=== PATIENT | female | born 1995 | race Caucasian/White ===

== ENCOUNTER 2021-12-06 02:10 | Inpatient (IN) | payer BC, MEDICAID ==
[2021-12-06] VITALS (22 sets, daily range): BP systolic 101–139; BP diastolic 56–77
[~2021-12-06] VITALS: Ht 165.1 cm; Wt 113.4 kg
--- OUTSIDE RECORDS SUMMARY | 2021-12-06 02:25 | XMS REPORT | Clinical Summary ---
Author Author [facility] Organization [facility] Address Unknown Phone Unavailable Care Team Providers Care Speeder Hand Name Role Phone No, Pcp GRINDER OPERATOR TOOL PCP Unavailable Allergies Not on File Medications Not on file Active Problems Not on file Encounters Not on filefrom Last 3 Months Immunizations Name Administration Dates Next Due PPD Test 02/26/2018 Social History Date Tobacco Use Types Packs/Day Years Used Never Assessed Sex Assigned at Date Recorded Not on file Last Filed Vital Signs Not on file Plan of Treatment Health Maintenance Due Date Last Done Comments [facility] COVID-19 Vaccine (1) 2000 Cervical Cancer: 2016 Screening Goals Not on file Medical Devices Not on file Procedures Not on filefrom Last 3 Months Results Not on filefrom Last 3 Months Additional Health Concerns Not on file Care Teams Start Date End Date Speeder Hand Relationship Specialty 02/26/18 No, Pcp, GRINDER OPERATOR TOOL PCP - General N/A Do not use
[2021-12-06] MEDS ORDERED: D5 LR IV SOLUTION 1,000 ML IV ONE (04:17)
--- NOTE | 2021-12-06 04:41 | History & Physical-OB ---
OB - Chief Complaint & HPI Date/Time Date of Admission: Date of Admission: December 06, 2021 at 02:10 Date seen by a Provider: December 06, 2021 Time Seen by a Provider: 04:35 Chief Complaint/History OB-Reason for Admission/Chief: Onset of Labor Hx : 1 Expected Date of Delivery: December 14, 2021 Gestational Age in Weeks: 38 Gestational Age in Days: 6 History of Labs O neg, Ab neg,, Rub Imm HIV/RPR/HepB/C NR Normal 1 hr GTT GBS neg Allergies and Home Medications Allergies Coded Allergies: No Known Drug Allergies (Unverified , 12/06/21) Patient Home Medication List Home Medication List Reviewed: Yes OB - History Hx of Present Care: Yes Ultrasounds: No ultrasounds Obstetrical Complications: None Medical Complications: None Information Induced Hypertension: No Maternal Gestational Diabetes: No Hemorrhage: No Obstetrical History Hx : 1 Number of Living Children: 0 Patient Past Medical History na Social History/Family History Alcohol Use: Denies Use Smoking Cessation: Never smoker Immunizations Influenza Vaccine Up-to-Date: Yes; Up-to-Date (08/22/21) First/Initial COVID19 Vaccine: 07/06/21 Second COVID19 Vaccination: 08/22/21 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[employer] Tetanus Booster (TDap): Less than 5yrs (09/26/21) Rubella: immune RPR/VDRL: Negative GBS Status: Negative HBsAG: Negative OB - Admission Exam Physical Exam HEENT: NCAT Heart: Rhythm Normal Lungs: Clear Abdomen: Gravid Cervical Dilatation: 8cm Effacement: 75% Station: -1 Membranes: Intact Heart Rate: 130's Accelerations: Accelerations Present Decelerations: No Decelerations Contractions on Admission: < 5 Minutes Apart Intensity: Firm OB - Assessment/Plan/Diagnosis Assessment Assessment: active labor Admission Dx Third Trimester 38 week gestation Active labor Admission Status: Inpatient Order (span 2 midnights) Reason for Inpatient Admission: Labor Plan Other Plan 26 yo G1 @ 38.6 wga presented in active labor Plan - Expectant management - GBS neg - Desires natural delivery at this time Copy Copies To 1: MANNY HERNANDEZ MD, HOLLY R MD December 06, 2021 04:40
[2021-12-06] MEDS ORDERED: D5 LR IV SOLUTION 1,000 ML IV SCH (05:15)
[2021-12-06] MEDS ORDERED: MINERAL OIL 30 ML TOP PRN (05:15)
[2021-12-06] MEDS ORDERED: LIDOCAINE/EPI 2% 1:200,00 (XYLOCAINE) 20 ML VIAL INJ PRN (05:15)
[2021-12-06 05:20] LABS: BASOPHILS % (AUTO) 0 % (0-10); EOSINOPHILS # (AUTO) 0.1 10^3/uL (0.0-0.3); EOSINOPHILS % (AUTO) 1 % (0-10); HEMATOCRIT 35 % (35-52); HEMOGLOBIN 11.2 g/dL (11.5-16.0); LYMPHOCYTES # (AUTO) 2.2 10^3/uL (1.0-4.0); LYMPHOCYTES % (AUTO) 20 % (12-44); MEAN CORPUSCULAR HEMOGLOBIN 28 pg (25-34); MEAN CORPUSCULAR HGB CONC 32 g/dL (32-36); MEAN CORPUSCULAR VOLUME 87 fL (80-99); MEAN PLATELET VOLUME 9.4 fL (9.0-12.2); MONOCYTES # (AUTO) 0.6 10^3/uL (0.0-1.0); MONOCYTES % (AUTO) 6 % (0-12); NEUTROPHILS # (AUTO) 8.3 10^3/uL (1.8-7.8); NEUTROPHILS % (AUTO) 73 % (42-75); PLATELET COUNT 314 10^3/uL (130-400); WHITE BLOOD COUNT 11.3 10^3/uL (4.3-11.0)
[2021-12-06] MEDS ORDERED: CATHETER FLUSH 10 ML SYR IV SCH ×2 (06:00→14:00)
--- NOTE | 2021-12-06 06:05 | Labor Progress Note ---
Labor Progress Note Labor Progress Note Date Seen by Provider: December 06, 2021 Time Seen by Provider: 06:03 Subjective: Patient feeling more pressure. Still denies any LOF. Tolerating ctxs. Objective: Cervical exam: /- Consistency: Soft Presentation: Vertex per SVE heart tones: 145 beats per minute, Mod variability, reactive Tocometer: q 2-3 mins, firm Assessment/Plan: Kirsten He is a (26 /Para 1 / ,Gestational Age (wks)38.6 here in active labor CEFM/TOCO Anesthesia: Natural Anticipate vaginal delivery. GBS neg AROM 0600 Clear Vitals - Labs Vital Signs - I&O Vital Signs Date Time Temp Pulse Resp B/P (MAP) Pulse Ox O2 Delivery O2 Flow Rate FiO2 12/06/21 02:20 36.4 59 18 99 Room Air Labs Laboratory Tests 12/06/21 04:23: White Blood Count 11.3H, Red Blood Count 3.98, Hemoglobin 11.2L, Hematocrit 35, Mean Corpuscular Volume 87, Mean Corpuscular Hemoglobin 28, Mean Corpuscular Hemoglobin Concent 32, Red Cell Distribution Width 13.8, Platelet Count 314, Mean Platelet Volume 9.4, Immature Granulocyte % (Auto) 0, Neutrophils (%) (Auto) 73, Lymphocytes (%) (Auto) 20, Monocytes (%) (Auto) 6, Eosinophils (%) (Auto) 1, Basophils (%) (Auto) 0, Neutrophils # (Auto) 8.3H, Lymphocytes # (Auto) 2.2, Monocytes # (Auto) 0.6, Eosinophils # (Auto) 0.1, Basophils # (Auto) 0.0, Immature Granulocyte # (Auto) 0.1 MANNY HERNANDEZ MD December 06, 2021 06:05
[2021-12-06] MEDS ORDERED: LIDOCAINE/EPI 2% 1:200,00 (XYLOCAINE) 10 ML VIAL ONE (07:32)
[2021-12-06] MEDS ORDERED: OXYTOCIN PRE-MIX DRIP 500 ML IV ONE (07:32)
[2021-12-06] MEDS ORDERED: LIDOCAINE/EPI 2% 1:200,00 (XYLOCAINE) 10 ML VIAL INJ ONE (07:45)
[2021-12-06] MEDS ORDERED: OXYTOCIN PRE-MIX DRIP 500 ML IV SCH ×2 (07:45→10:15)
[2021-12-06] MEDS ORDERED: METHYLERGONOVINE 0.2 MG/ML (METHERGINE) AMP ONE (09:42)
[2021-12-06] MEDS ORDERED: fentaNYL INJ 100 MCG/2 ML AMP ONE (09:45)
--- NOTE | 2021-12-06 10:00 | OB Labor & Delivery Record ---
Vag Delivery Note Vag Delivery Note Date of Delivery: 12/06/21 Preoperative Diagnosis: Kirsten He is a (26 /Para 1 / ,Gestational Age (wks)38.6 that presented in active labor Postoperative Diagnosis: Same Surgeon: MANNY HERNANDEZ MD Inspector Materials And Processes: None Anesthesia: None Delivery Type: @ 0927 Findings: Viable Male , apgars 8/9, weight 7#1, 3190 grams Lacerations: 2nd degree perineal laceration and left labial laceration Intact placenta with 3 vessel cord. No nuchal cord, body cord or shoulder dystocia Cytotec 800 mcg placed for hemorrhage prophylaxis Estimated Blood Loss: 300 ml Complications: None Condition: Stable Description of Procedure: The patient is a 26 year old female who presented in active labor and was augmented with pitocin after 2 hrs of no cervical change after AROM. She was admitted and informed consent was obtained. Her labor course was unremarkable. She progressed to complete dilatation and began to push. She was then set up for delivery. The infant's head was delivered atraumatically in the IAN position. The shoulders and remainder of the 's body were then delivered without difficulty. Upon delivery, the head was held below the level of the perineum and the mouth and nares were bulb suctioned. The cord was doubly clamped and cut by FOB after 2 min delay and the infant was attended to by the pediatric staff on maternal. An intact placenta with 3-vessel cord delivered via Leonard and there was found to be minimal bleeding.~ Vigorous fundal massage was performed and the fundus was found to be firm. IV oxytocin was given. Examination of the vagina and perineum revealed a 2nd degree perineal laceration repaired in the usual fashion with 3-0 vicryl suture and left labial laceration that was not repaired and not bleeding. Following the repair, sponge, instrument and needle counts were correct. Mom and baby were both in stable condition in the labor suite. Vitals - Labs Vital Signs - I&O Vital Signs Date Time Temp Pulse Resp B/P (MAP) Pulse Ox O2 Delivery O2 Flow Rate FiO2 12/06/21 08:00 36.5 54 20 127/76 (93) Room Air 12/06/21 07:45 67 20 120/69 (86) Room Air 12/06/21 07:30 36.3 58 20 101/56 (71) Room Air 12/06/21 07:00 20 Room Air 12/06/21 06:30 54 20 110/74 (86) Room Air 12/06/21 06:00 36.5 20 Room Air 12/06/21 05:30 20 Room Air 12/06/21 02:20 36.4 59 18 99 Room Air Labs Laboratory Tests 12/06/21 04:23: White Blood Count 11.3H, Red Blood Count 3.98, Hemoglobin 11.2L, Hematocrit 35, Mean Corpuscular Volume 87, Mean Corpuscular Hemoglobin 28, Mean Corpuscular Hemoglobin Concent 32, Red Cell Distribution Width 13.8, Platelet Count 314, Mean Platelet Volume 9.4, Immature Granulocyte % (Auto) 0, Neutrophils (%) (Auto) 73, Lymphocytes (%) (Auto) 20, Monocytes (%) (Auto) 6, Eosinophils (%) (Auto) 1, Basophils (%) (Auto) 0, Neutrophils # (Auto) 8.3H, Lymphocytes # (Auto) 2.2, Monocytes # (Auto) 0.6, Eosinophils # (Auto) 0.1, Basophils # (Auto) 0.0, Immature Granulocyte # (Auto) 0.1 MANNY HERNANDEZ MD December 06, 2021 10:00
[2021-12-06] MEDS ORDERED: WITCH HAZEL(TUCKS) 40 EA JAR TOP PRN (10:15)
[2021-12-06] MEDS ORDERED: NALOXONE 0.4 MG/ML 1 ML (NARCAN) VIAL IV PRN (10:15)
[2021-12-06] MEDS ORDERED: BENZOCAINE/MENTHOL (DERMOPLAST) 56 ML CAN TP PRN (10:15)
[2021-12-06] MEDS ORDERED: TETANUS,DIPTH,PERTUSS P/F (BOOSTRIX) 0.5 ML VIAL IM ONE (10:15)
[2021-12-06] MEDS ORDERED: METHYLERGONOVINE 0.2 MG/ML (METHERGINE) AMP IM ONE (11:00)
[2021-12-06] MEDS ORDERED: fentaNYL INJ 100 MCG/2 ML AMP IVP ONE (11:00)
[2021-12-06] MEDS ORDERED: LACTATED RINGERS 500 ML IV ONE ×2 (13:04)
[2021-12-06] MEDS ORDERED: ACETAMINOPHEN 500 MG TAB (TYLENOL) PO PRN (15:30)
[2021-12-06] MEDS: IBUPROFEN 600 MG (MOTRIN) TAB PO SCH (15:45)
[2021-12-06] MEDS: DOCUSATE SODIUM 100 MG (COLACE) CAP PO SCH (20:14)
[2021-12-07 00:39] VITALS: BP 104/51
[2021-12-07] MEDS: IBUPROFEN 600 MG (MOTRIN) TAB PO SCH ×2 (00:39→07:01)
[2021-12-07 03:25] VITALS: BP 122/64
[2021-12-07 05:55] LABS: BASOPHILS % (AUTO) 0 % (0-10); EOSINOPHILS # (AUTO) 0.1 10^3/uL (0.0-0.3); EOSINOPHILS % (AUTO) 1 % (0-10); HEMATOCRIT 25 % (35-52); HEMOGLOBIN 7.9 g/dL (11.5-16.0); LYMPHOCYTES # (AUTO) 2.2 10^3/uL (1.0-4.0); LYMPHOCYTES % (AUTO) 16 % (12-44); MEAN CORPUSCULAR HEMOGLOBIN 28 pg (25-34); MEAN CORPUSCULAR HGB CONC 32 g/dL (32-36); MEAN CORPUSCULAR VOLUME 88 fL (80-99); MEAN PLATELET VOLUME 9.4 fL (9.0-12.2); MONOCYTES # (AUTO) 0.6 10^3/uL (0.0-1.0); MONOCYTES % (AUTO) 5 % (0-12); NEUTROPHILS # (AUTO) 10.2 10^3/uL (1.8-7.8); NEUTROPHILS % (AUTO) 77 % (42-75); PLATELET COUNT 235 10^3/uL (130-400); WHITE BLOOD COUNT 13.1 10^3/uL (4.3-11.0)
[2021-12-07 08:14] VITALS: BP 117/65
[2021-12-07] MEDS: DOCUSATE SODIUM 100 MG (COLACE) CAP PO SCH (08:27)
[2021-12-07] MEDS ORDERED: FERROUS SULF 325 MG (IRON) TAB PO SCH (09:00)
--- NOTE | 2021-12-07 09:10 | Short Stay Summary ---
Discharge Summary Hospital Course Final Diagnosis: s/p on 12/06/21 Hospital Course Date of Admission: December 06, 2021 at 02:10 Admission Diagnosis : 1. G1 at 38w6d; spontaneous labor 2. Rh negative Family Physician/Provider: Luca Date of Discharge: 12/07/21 Discharge Diagnosis: 1. G1 at 38w6d; spontaneous labor s/p 12/06/21 2. Secondary degree and L labia laceration repair 3. Acute blood loss anemia secondary to delivery - asymptomatic Hospital Course: Routine course. Started iron BID for anemia. Labs and Pending Lab Test: Laboratory Tests 12/07/21 05:30: White Blood Count 13.1H, Red Blood Count 2.84L, Hemoglobin 7.9#L, Hematocrit 25L , Mean Corpuscular Volume 88, Mean Corpuscular Hemoglobin 28, Mean Corpuscular Hemoglobin Concent 32, Red Cell Distribution Width 13.9, Platelet Count 235, Mean Platelet Volume 9.4, Immature Granulocyte % (Auto) 1, Neutrophils (%) (Auto) 77H, Lymphocytes (%) (Auto) 16, Monocytes (%) (Auto) 5, Eosinophils (%) (Auto) 1, Basophils (%) (Auto) 0, Neutrophils # (Auto) 10.2H, Lymphocytes # (Auto) 2.2, Monocytes # (Auto) 0.6, Eosinophils # (Auto) 0.1, Basophils # (Auto) 0.0, Immature Granulocyte # (Auto) 0.1 Assessment/Pt Instructions Follow-up with Dr. Segovia in 6wk. Discharge Instructions Discharge Diet: No Restrictions Discharge Physical Examination General Appearance: Alert, Oriented X3, Cooperative Psych/Mental Status: Mood NL Allergies: Coded Allergies: No Known Drug Allergies (Unverified , 12/06/21) Discharge Summary Date of Admission December 06, 2021 at 02:10 Date of Discharge CARMEN TABOR DO December 07, 2021 09:10
[2021-12-07] MEDS ORDERED: FERR325T24 PO (09:11)
[2021-12-07] MEDS ORDERED: IBUP-844 PO (09:11)
[2021-12-07 11:55] VITALS: BP 119/63
[2021-12-07 12:00] VITALS: BP 119/63
== END 2021-12-07 12:35 | disposition home or self-care (01) | DRG 806 ==
LOC: LDRP 02:10
PROVIDERS: ADMIT Family Medicine; ATTEND Family Medicine
PROC: 10E0XZZ Delivery of Products of Conception, External Approach (ICD-10-PCS; principal; 2021-12-06)
PROC: 0KQM0ZZ Repair Perineum Muscle, Open Approach (ICD-10-PCS; 2021-12-06)
PROC: 10907ZC Drainage of Amniotic Fluid, Therapeutic from Products of Conception, Via Natural or Artificial Opening (ICD-10-PCS; 2021-12-06)
PROC: 0UQMXZZ Repair Vulva, External Approach (ICD-10-PCS; 2021-12-06)
DX: O70.1 Second degree perineal laceration during delivery (principal); D62 Acute posthemorrhagic anemia; Z37.0 Single live birth; Z3A.38 38 weeks gestation of pregnancy; O71.89 Other specified obstetric trauma; O90.81 Anemia of the puerperium
CPT/HCPCS: 36415; 83033; 85025; 86850; 86900; 86901; 99212

== ENCOUNTER 2022-11-01 10:40 | Observation (INO) | payer MEDICAID ==
[~2022-11-01] VITALS: Ht 66 cm; Wt 110.0 kg
[~2022-11-01 10:40] MED LIST: FERR325T24 PO; IBUP-844 PO; LACTATED RINGERS 1,000 ML IV ONE
[2022-11-01 11:55] LABS: BILIRUBIN,URINE NEGATIVE (NEGATIVE); CLARITY,URINE CLEAR; COLOR,URINE YELLOW; GLUCOSE, URINE (UA) NEGATIVE (NEGATIVE); KETONES,URINE 2+ (NEGATIVE); LEUKOCYTE ESTERASE ,URINE NEGATIVE (NEGATIVE); NITRITE,URINE NEGATIVE (NEGATIVE); PROTEIN,URINE NEGATIVE (NEGATIVE)
[2022-11-01 12:00] LABS: BASOPHILS % (AUTO) 0 % (0-10); EOSINOPHILS % (AUTO) 0 % (0-10); HEMATOCRIT 31 % (35-52); HEMOGLOBIN 9.4 g/dL (11.5-16.0); LYMPHOCYTES # (AUTO) 0.7 10^3/uL (1.0-4.0); LYMPHOCYTES % (AUTO) 7 % (12-44); MEAN CORPUSCULAR HEMOGLOBIN 24 pg (25-34); MEAN CORPUSCULAR HGB CONC 30 g/dL (32-36); MEAN CORPUSCULAR VOLUME 77 fL (80-99); MEAN PLATELET VOLUME 9.1 fL (9.0-12.2); MONOCYTES # (AUTO) 0.4 10^3/uL (0.0-1.0); MONOCYTES % (AUTO) 5 % (0-12); NEUTROPHILS # (AUTO) 7.9 10^3/uL (1.8-7.8); NEUTROPHILS % (AUTO) 87 % (42-75); PLATELET COUNT 299 10^3/uL (130-400)
[2022-11-01] MEDS ORDERED: ONDANSETRON 4 MG/2 ML (SDV) Z0FRAN IVP PRN (12:00)
[2022-11-01 12:04] LABS: ALBUMIN 3.3 GM/DL (3.2-4.5)
[2022-11-01 12:05] LABS: POTASSIUM 3.8 MMOL/L (3.6-5.0)
[2022-11-01 12:06] LABS: CALCIUM 8.5 MG/DL (8.5-10.1)
[2022-11-01 12:07] LABS: TOTAL PROTEIN 6.6 GM/DL (6.4-8.2)
[2022-11-01 12:09] LABS: BILIRUBIN,TOTAL 0.7 MG/DL (0.1-1.0)
[2022-11-01 12:09] LABS: AMORPHOUS SEDIMENT,UR FEW AMOR URATES /LPF; BACTERIA,URINE NEGATIVE /HPF; SQUAMOUS EPITHELIAL CELL,UR 0-2 /HPF; WBC,URINE RARE /HPF
[2022-11-01 12:11] LABS: CREATININE SERUM 0.71 MG/DL (0.60-1.30)
[2022-11-01 12:21] LABS: NEUTROPHILS % (MANUAL) 83 %
[2022-11-01] MEDS: D5 LR IV SOLUTION 1,000 ML IV SCH ×2 (12:21→18:58)
[2022-11-01 12:22] LABS: ANISOCYTOSIS SLIGHT; BAND NEUTROPHILS 8 %; BASOPHILS % (MANUAL) 0 %; ELLIPT/OVALOCYTES SLIGHT; EOSINOPHILS % (MANUAL) 0 %; LYMPHOCYTES % (MANUAL) 8 %; MICROCYTOSIS SLIGHT; MONOCYTES % (MANUAL) 1 %
--- NOTE | 2022-11-01 13:25 | Diagnostic Imaging Report ---
INDICATION: Syncopal episode TECHNIQUE: The fetus was observed for purposes of a biophysical profile evaluation. FINDINGS: Intrauterine is currently in a cephalic presentation. The placenta is along the posterior aspect without evidence for previa. cardiac activity at 142 beats per minute. Normal amount of amniotic fluid with an index at 14.5 cm. Biometrical measurements are as follows: Biparietal 8.96 cm, age 36 weeks 2 days. Head circumference 32.55 cm, age 37 weeks 0 days. Abdominal circumference 32.88 cm, age 36 weeks 6 days. Femur length 6.68 cm, age 34 weeks 3 days. Sonographic estimate age: 36 weeks 1 days. Sonographic estimated date of delivery: 11/28/2022. Estimated Weight: 2859 gm (+/- 418 gm). LMP percentile: 69%. heart rate: 142 beats per minute. number: 1 of 1. Biophysical Profile Scoring: breathin Body movement: 2 tone: 2 Amniotic fluid: 2 Total BPP Score: 8/8 IMPRESSION: 1. Normal biophysical profile score. Dictated by: Dictated on workstation # [id number]
[2022-11-01 13:34] VITALS: BP 133/74
[2022-11-01 13:40] VITALS: BP 112/42
[2022-11-01 16:00] VITALS: BP 124/60
[2022-11-01 20:08] VITALS: BP 119/67
[2022-11-01 21:30] VITALS: BP 119/67
--- NOTE | 2022-11-10 13:11 | Physician Query-Final Dx ---
MARTI,11/10/22 1311: Clinic Account Progress/Dx Physician Query: Please give diagnosis Please include # weeks gestation Date of Service MANNY HERNANDEZ MD 11/12/22 1946: Clinic Account Progress/Dx DIAGNOSIS: Diagnosis third trimester syncope Nausea and vomiting in 35 weeks gestation MARTI,AugNov 10, 2022 13:11 MANNY HERNANDEZ MD Nov 12, 2022 19:46
== END 2022-11-01 21:30 | disposition home or self-care (01) ==
LOC: LDRP 10:40
PROVIDERS: ADMIT Family Medicine; ATTEND Family Medicine
DX: O99.353 Diseases of the nervous system complicating pregnancy, third trimester (principal); O21.2 Late vomiting of pregnancy; Z3A.35 35 weeks gestation of pregnancy
CPT/HCPCS: 36415; 76805; 76819; 80053; 81000; 85007; 85027; 87088; 96361; 96374; G0378

== ENCOUNTER 2022-11-17 12:12 | Inpatient (IN) | payer MEDICAID ==
[~2022-11-17] VITALS: Ht 167.7 cm; Wt 112.0 kg
[2022-11-17] VITALS (14 sets, daily range): BP systolic 101–134; BP diastolic 51–81
[~2022-11-17 12:12] MED LIST changes: -LACTATED RINGERS 1,000 ML IV ONE
--- NOTE | 2022-11-17 12:30 | ED GU-Female ---
General Chief Complaint: OB > 20 WEEKS Stated Complaint: LABOR CONTRACTIONS History of Present Illness Date Seen by Provider: Nov 17, 2022 Time Seen by Provider: 12:20 Initial Comments 27-year-old female who is 2 and 37 weeks and 6 days , is here with complaints of contractions which began about 10 or 20 minutes ago. Patient reports that her contractions are 1 minute apart, and also gives a history of delivering her first baby after having only 1 hour of contractions. Patient reports her water has not broken. Pt had lunch just a little while ago. Denies dizziness, bleeding, discharge. Allergies and Home Medications Allergies Coded Allergies: amoxicillin (Unverified Allergy, Severe, 11/01/22) In medical record clavulanic acid (Unverified Allergy, Severe, 11/01/22) In medical record rubella virus live vaccine (Unverified Allergy, Unknown, 11/01/22) In medical record Patient Home Medication List Home Medication List Reviewed: Yes Ferrous Sulfate (Ferosul) 325 Mg (65 Mg Iron) Tablet, 325 MG PO BID WITH MEALS Prescribed by: CARMEN TABOR on 12/07/21 0911 Review of Systems Review of Systems Constitutional: no symptoms reported EENTM: no symptoms reported Respiratory: no symptoms reported Cardiovascular: no symptoms reported Gastrointestinal: no symptoms reported Genitourinary: other (Patient is dilated 3 to 4 cm and is having contractions approximately 2 minutes apart) : Yes Musculoskeletal: no symptoms reported Skin: no symptoms reported Psychiatric/Neurological: No Symptoms Reported Endocrine: No Symptoms Reported Hematologic/Lymphatic: No Symptoms Reported Past Egnvnso-Rhvtvs-Nlcbzq Hx Immunizations Up To Date Tetanus Booster (TDap): Less than 5yrs First/Initial COVID19 Vaccinat: 07/06/21 Second COVID19 Vaccination Shaq: 08/22/21 Physical Exam Vital Signs Capillary Refill : Height, Weight, BMI Height: '" Weight: lbs. oz. kg; 252.52 BMI Method: General Appearance: mild distress HEENT: PERRL/EOMI Neck: full range of motion, supple Cardiovascular: regular rate, rhythm Respiratory: chest non-tender, lungs clear, normal breath sounds Gastrointestinal: normal bowel sounds, soft Genital/Rectal: other (Patient's OB PA has checked patient and she is 3 to 4 cm dilated and having contractions 2 minutes apart, FHR is ) Pelvic: normal external exam, other (Patient's OB PA has checked patient and she is 3 to 4 cm dilated and having contractions 2 minutes apart) Back: normal inspection, no CVA tenderness Extremities: normal range of motion Neurologic/Psychiatric: alert, oriented x 3 Skin: normal color Progress/Results/Core Measures Suspected Sepsis SIRS Temperature: Pulse: Respiratory Rate: Blood Pressure / Mean: Results/Orders Vital Signs/I&O Capillary Refill : Progress Note : Progress Note 1. LABOR: - Transfer to L&D for plan for delivery -Dr. Paul's PA came into the ER to check patient. Patient is 3 to 4 cm dilated and having contractions 2 minutes apart. Departure Impression Primary Impression: Active labor Disposition: 30 STILL A PATIENT Condition: Stable Admissions Decision to Admit Reason: Admit from ER (General) Decision to Admit/Date: Nov 17, 2022 Time/Decision to Admit Time: 12:20 Transfer Method of Transfer: Private Vehicle Departure-Patient Inst. Referrals: MANNY HERNANDEZ MD (PCP) Primary Care Physician JAYLEN JAMIL MD Nov 17, 2022 12:30
[2022-11-17] MEDS ORDERED: D5 LR IV SOLUTION 1,000 ML IV ONE (14:08)
--- NOTE | 2022-11-17 14:10 | History & Physical-OB/GYN ---
TYESHA MOORE 11/17/22 1410: OB - Chief Complaint & HPI Date/Time Date of Admission: Date of Admission: Nov 17, 2022 at 13:18 Date seen by a Provider: Nov 17, 2022 Time Seen by a Provider: 13:30 Chief Complaint/History OB-Reason for Admission/Chief: Onset of Labor Hx : 2 Hx Para: 1001 Expected Date of Delivery: Dec 02, 2022 Gestational Age in Weeks: 37 Gestational Age in Days: 6 History of Labs O neg, Ab neg GBS neg RI HIV NR RPR NR HepB NR HepC NR Trichomonas neg BV neg G/C neg Allergies and Home Medications Allergies Coded Allergies: amoxicillin (Unverified Allergy, Severe, 11/01/22) In medical record clavulanic acid (Unverified Allergy, Severe, 11/01/22) In medical record rubella virus live vaccine (Unverified Allergy, Unknown, 11/01/22) In medical record Patient Home Medication List Home Medication List Reviewed: Yes Ferrous Sulfate (Ferosul) 325 Mg (65 Mg Iron) Tablet, 325 MG PO BID WITH MEALS Prescribed by: CARMEN TABOR on 12/07/21 0911 OB - History Hx of Present Care: Yes Ultrasounds: Normal mid trimester US Obstetrical Complications: None, Other (iron deficiency anemia) Medical Complications: Other (iron deficiency anemia) Information Induced Hypertension: No Maternal Gestational Diabetes: No Hemorrhage: No Obstetrical History Hx : 2 Hx Para: 1 Hx # Term Pregnancies: 1 Hx # Pregnancies: 0 Number of Living Children: 1 Hx Termination: No Hx Multiple Gestation: No Hx Complication: No Hx Induced Hypertens: No Hx Maternal Gestational Diabet: No Hx Hemorrhage: No Delivery History Hx Dystocia: No Hx Forceps Assisted Delivery: No Hx Vacuum Extraction Assisted: No Hx Placenta Abnormality: No Hx Section: No Hx Vaginal Delivery Post C-Sec: No Patient Past Medical History Childhood asthma Social History/Family History Alcohol Use: Denies Use Recreational Drug Use: No Smoking Cessation: Never smoker 2nd Hand Smoke Exposure: No Significant Family Hx None Immunizations First/Initial COVID19 Vaccine: 07/06/21 Second COVID19 Vaccination: 08/22/21 Third COVID19 Vaccination Date: 07/06/21 Tetanus Booster (TDap): Less than 5yrs Rubella: immune RPR/VDRL: Negative GBS Status: Negative HBsAG: Negative OB - Admission Exam Physical Exam Vitals: Vital Signs 11/17/22 12:40 Temp 36.8 Pulse 70 Resp 16 B/P (MAP) 136/75 Pulse Ox 100 Abdomen: Gravid Extremities: Normal Cervical Dilatation: other (5-6cm) Effacement: Other (80%) Station: -2 Membranes: Intact Heart Rate: 120's Accelerations: Accelerations Present Decelerations: No Decelerations Fdc Variability: Average (6-25) Contractions on Admission: 6-10 Minutes Apart Date/Time Contractions Began;: 11/17/22 at 1200 Frequency of Contractions: At onset q1-2 minutes. Have since spaced out to q6 minutes Intensity: Moderate Schneider Scoring Tool (Modified) Dilation (cm): >5cm (3) Effacement (%): 80-100% (3) Descent/Station: -2 (1) Cervix Consistency: Soft (2) Cervix Position: Anterior (2) Add 1 point for: Each previous vaginal delivery (1) Schneider Score: 14 OB - Assessment/Plan/Diagnosis Assessment Assessment: active labor Admission Dx 27 y/o , GA 37.6. Onset of contractions/labor Admission Status: Inpatient Order (span 2 midnights) Reason for Inpatient Admission: Onset of labor Plan Plan: Expectant Management Problems: (1) 37 weeks gestation of Assessment & Plan: 27y/o , GA 37.6. GBS neg. complicated with iron deficiency anemia -Onset of contractions/labor. Pt presented to [place] ED for contractions today at noon. SVE revealed pt was 4cm dilated. Upon arrival to [facility] L&D, pt was 5-6/80/-2. Pt appears to be in active labor. -Expectant management with EFM -Consider labor augmentation with pitocin if contractions continue to space out -Consider labor augmentation with AROM if head becomes applied -CBC or point of care Hgb 2hrs post delivery with close monitoring of the patient's disposition. Pt has a history of syncope shortly after previous delivery secondary to blood loss anemia -AM CBC -Ferrous sulfate in setting in Hgb <10 -Pt is having male , desires circumcision (2) Active labor Assessment & Plan: -Expectant management with EFM -Consider labor augmentation with pitocin if contractions continue to space out -Consider labor augmentation with AROM if head becomes applied ASHLEIGH HERNANDEZ MD 11/17/22 1529: Allergies and Home Medications Allergies Coded Allergies: amoxicillin (Unverified Allergy, Severe, 11/01/22) In medical record clavulanic acid (Unverified Allergy, Severe, 11/01/22) In medical record rubella virus live vaccine (Unverified Allergy, Unknown, 11/01/22) In medical record Patient Home Medication List Ferrous Sulfate (Ferosul) 325 Mg (65 Mg Iron) Tablet, 325 MG PO BID WITH MEALS Prescribed by: CARMEN TABOR on 12/07/21 0911 Supervisory-Addendum Brief Verification & Attestation Participated in pt care: history, physical Personally performed: exam, history Care discussed with: Medical Student Procedures: n/a Verification and Attestation of Medical Student E/M Service A medical student performed and documented this service in my presence. I reviewed and verified all information documented by the medical student and made modifications to such information, when appropriate. I personally performed the physical exam and medical decision making. Ashleigh Hernandez, Nov 17, 2022,15:29 TYESHA MOORE Nov 17, 2022 14:10 ASHLEIGH HERNANDEZ MD Nov 17, 2022 15:29
[2022-11-17] MEDS ORDERED: LIDOCAINE 1% INJ 20 ML VIAL IJ PRN (14:15)
[2022-11-17] MEDS ORDERED: D5 LR IV SOLUTION 1,000 ML IV SCH (14:15)
[2022-11-17] MEDS ORDERED: MINERAL OIL 30 ML UDC TOP PRN (14:15)
[2022-11-17 14:25] LABS: HEMOGLOBIN 9.3 g/dL (11.5-16.0); WHITE BLOOD COUNT 13.6 10^3/uL (4.3-11.0)
[2022-11-17 14:26] LABS: BASOPHILS % (AUTO) 0 % (0-10); EOSINOPHILS # (AUTO) 0.1 10^3/uL (0.0-0.3); EOSINOPHILS % (AUTO) 1 % (0-10); HEMATOCRIT 30 % (35-52); LYMPHOCYTES # (AUTO) 1.6 10^3/uL (1.0-4.0); LYMPHOCYTES % (AUTO) 12 % (12-44); MEAN CORPUSCULAR HEMOGLOBIN 23 pg (25-34); MEAN CORPUSCULAR HGB CONC 31 g/dL (32-36); MEAN CORPUSCULAR VOLUME 76 fL (80-99); MEAN PLATELET VOLUME 9.2 fL (9.0-12.2); MONOCYTES # (AUTO) 0.6 10^3/uL (0.0-1.0); MONOCYTES % (AUTO) 5 % (0-12); NEUTROPHILS # (AUTO) 11.2 10^3/uL (1.8-7.8); NEUTROPHILS % (AUTO) 82 % (42-75); PLATELET COUNT 341 10^3/uL (130-400)
[2022-11-17] MEDS ORDERED: OXYTOCIN PRE-MIX DRIP 500 ML IV SCH (14:45)
[2022-11-17] MEDS ORDERED: ACETAMINOPHEN 500 MG TAB (TYLENOL) PO ONE (15:00)
--- NOTE | 2022-11-17 15:43 | Labor Progress Note ---
Labor Progress Note Labor Progress Note Date Seen by Provider: Nov 17, 2022 Time Seen by Provider: 15:30 Subjective: AROM at 1533. Clear fluid. Head is well-applied. Objective: Cervical exam: /-1 Consistency: soft Position: anterior Presentation: vertex heart tones: 120s, moderate variability, accelerations present, one early deceleration Tocometer: 1-2 ctx/10 minutes Assessment/Plan: Kirsten He is a 27 y/o , 37.6 wga, GBS neg CEFM/TOCO Continue pitocin at current dose of 4 for labor augmentation Anesthesia: none Anticipate vaginal delivery. Vitals - Labs Vital Signs - I&O Vital Signs Date Time Temp Pulse Resp B/P (MAP) Pulse Ox O2 Delivery O2 Flow Rate FiO2 11/17/22 14:08 36.9 67 20 90 Room Air 11/17/22 12:40 36.8 70 16 136/75 100 11/17/22 12:18 36.8 70 16 136/75 (95) 100 Labs Laboratory Tests 11/17/22 13:40: White Blood Count 13.6H, Red Blood Count 3.98, Hemoglobin 9.3L, Hematocrit 30L, Mean Corpuscular Volume 76L, Mean Corpuscular Hemoglobin 23L, Mean Corpuscular Hemoglobin Concent 31L, Red Cell Distribution Width 18.3H, Platelet Count 341, Mean Platelet Volume 9.2, Immature Granulocyte % (Auto) 0, Neutrophils (%) (Auto) 82H, Lymphocytes (%) (Auto) 12, Monocytes (%) (Auto) 5, Eosinophils (%) (Auto) 1, Basophils (%) (Auto) 0, Neutrophils # (Auto) 11.2H, Lymphocytes # (Auto) 1.6, Monocytes # (Auto) 0.6, Eosinophils # (Auto) 0.1, Basophils # (Auto) 0.0, Immature Granulocyte # (Auto) 0.1 TYESHA MOORE Nov 17, 2022 15:43
[2022-11-17] MEDS ORDERED: LIDOCAINE 1% INJ 10 ML VIAL ONE (15:54)
[2022-11-17] MEDS ORDERED: ONDANSETRON 4 MG/2 ML (SDV) Z0FRAN ONE (17:25)
[2022-11-17] MEDS ORDERED: ONDANSETRON 4 MG/2 ML (SDV) Z0FRAN IVP ONE (17:30)
--- NOTE | 2022-11-17 17:39 | Labor Progress Note ---
Labor Progress Note Labor Progress Note Date Seen by Provider: Nov 17, 2022 Time Seen by Provider: 17:36 Subjective: Patient having alot of back pain and having some nausea. Doesn't feel pushy. Objective: Complete/- Asynclitic presentation with occipute to maternal right Assessment/Plan: Kirsten He is a (27 /Para 2 / 1,Gestational Age (wks)37.3 wga here in active labor CEFM/TOCO Continue pitocin augmentation of labor Anesthesia: none currently, patient desires epidural GBS neg Anticipate vaginal delivery. Vitals - Labs Vital Signs - I&O Vital Signs Date Time Temp Pulse Resp B/P (MAP) Pulse Ox O2 Delivery O2 Flow Rate FiO2 11/17/22 14:08 36.9 67 20 90 Room Air 11/17/22 12:40 36.8 70 16 136/75 100 11/17/22 12:18 36.8 70 16 136/75 (95) 100 Labs Laboratory Tests 11/17/22 13:40: White Blood Count 13.6H, Red Blood Count 3.98, Hemoglobin 9.3L, Hematocrit 30L, Mean Corpuscular Volume 76L, Mean Corpuscular Hemoglobin 23L, Mean Corpuscular Hemoglobin Concent 31L, Red Cell Distribution Width 18.3H, Platelet Count 341, Mean Platelet Volume 9.2, Immature Granulocyte % (Auto) 0, Neutrophils (%) (Auto) 82H, Lymphocytes (%) (Auto) 12, Monocytes (%) (Auto) 5, Eosinophils (%) (Auto) 1, Basophils (%) (Auto) 0, Neutrophils # (Auto) 11.2H, Lymphocytes # (Auto) 1.6, Monocytes # (Auto) 0.6, Eosinophils # (Auto) 0.1, Basophils # (Auto) 0.0, Immature Granulocyte # (Auto) 0.1 MANNY HERNANDEZ MD Nov 17, 2022 17:39
[2022-11-17] MEDS: OXYTOCIN PRE-MIX DRIP 500 ML IV SCH ×2 (17:49→18:20)
[2022-11-17] MEDS ORDERED: METHYLERGONOVINE 0.2 MG/ML (METHERGINE) AMP ONE (17:53)
--- NOTE | 2022-11-17 18:10 | OB Labor & Delivery Record ---
Vag Delivery Note Vag Delivery Note Date of Delivery: 11/17/22 Preoperative Diagnosis: Kirsten He is a 27 y/o G2 now P2002, GBS neg. Postoperative Diagnosis: Same Surgeon: Dr. Segovia Remote Computer Terminal Operator: Tyesha Moore, MS4 Anesthesia: none Delivery Type: Findings: Viable male , apgars 9, 9, weight 3160 g Lacerations: none Intact placenta with 3 vessel cord. No nuchal cord, body cord or shoulder dystoc ia Estimated Blood Loss: 200 ml Complications: None Condition: Stable Description of Procedure: The patient is a 27 year old female who presented to the [place] ED with contractions, onset 1200, and was dilated to 4cm. Patient was advised to come to L&D at [facility]. Upon arrival she was admitted and informed consent was obtained. Her labor course was unremarkable. AROM at 1533 with clear fluid. She progressed to complete dilatation and began to push. She was then set up for delivery. The infant's head was delivered atraumatically in the DLAE position. The shoulders and remainder of the infant's body were then delivered without difficulty. Upon delivery, the infant was vigorous and placed on maternal chest and the mouth and nares were bulb suctioned. After a delay cord was doubly clamped and cut and the remained on maternal chest. An intact placenta with 3-vessel cord delivered via Leonard and there was found to be minimal bleeding.~ Vigorous fundal massage was performed and the fundus was found to be firm. IV oxytocin was given. Examination of the vagina and perineum revealed a no lacerations. There was a trickle of uterine bleeding and one dose of Methergine was given. Following the repair, sponge, instrument and needle counts were correct. Mom and baby were both in stable condition in the labor suite. Mother passed one moderate-sized blood clot after initial nursing fundal massage. Patient's bleeding will be closely monitored. Vitals - Labs Vital Signs - I&O Vital Signs Date Time Temp Pulse Resp B/P (MAP) Pulse Ox O2 Delivery O2 Flow Rate FiO2 11/17/22 14:08 36.9 67 20 90 Room Air 11/17/22 12:40 36.8 70 16 136/75 100 11/17/22 12:18 36.8 70 16 136/75 (95) 100 Labs Laboratory Tests 11/17/22 13:40: White Blood Count 13.6H, Red Blood Count 3.98, Hemoglobin 9.3L, Hematocrit 30L, Mean Corpuscular Volume 76L, Mean Corpuscular Hemoglobin 23L, Mean Corpuscular Hemoglobin Concent 31L, Red Cell Distribution Width 18.3H, Platelet Count 341, Mean Platelet Volume 9.2, Immature Granulocyte % (Auto) 0, Neutrophils (%) (Auto) 82H, Lymphocytes (%) (Auto) 12, Monocytes (%) (Auto) 5, Eosinophils (%) (Auto) 1, Basophils (%) (Auto) 0, Neutrophils # (Auto) 11.2H, Lymphocytes # (Auto) 1.6, Monocytes # (Auto) 0.6, Eosinophils # (Auto) 0.1, Basophils # (Auto) 0.0, Immature Granulocyte # (Auto) 0.1 TYESHA MOORE Nov 17, 2022 18:10
[2022-11-17] MEDS ORDERED: BENZOCAINE/MENTHOL (DERMOPLAST) 56 ML CAN TP PRN (18:30)
[2022-11-17] MEDS ORDERED: WITCH HAZEL(TUCKS) 40 EA JAR TOP PRN (18:30)
[2022-11-17] MEDS ORDERED: TETANUS,DIPTH,PERTUSS P/F (BOOSTRIX) 0.5 ML VIAL IM ONE (18:30)
[2022-11-17] MEDS: IBUPROFEN 600 MG (MOTRIN) TAB PO SCH (19:29)
[2022-11-17] MEDS ORDERED: LACTATED RINGERS 1,000 ML IV SCH (19:45)
[2022-11-17] MEDS: ACETAMINOPHEN 500 MG TAB (TYLENOL) PO SCH (19:50)
[2022-11-17] MEDS: DOCUSATE SODIUM 100 MG (COLACE) CAP PO SCH (20:49)
[2022-11-17] MEDS ORDERED: CATHETER FLUSH 10 ML SYR IV SCH ×2 (22:00)
[2022-11-18 00:22] VITALS: BP 110/53
[2022-11-18] MEDS: ACETAMINOPHEN 500 MG TAB (TYLENOL) PO SCH ×2 (00:43→13:47)
[2022-11-18] MEDS: IBUPROFEN 600 MG (MOTRIN) TAB PO SCH ×2 (03:02→06:20)
[2022-11-18 03:03] VITALS: BP 106/54
[2022-11-18 06:51] LABS: BASOPHILS # (AUTO) 0.1 10^3/uL (0.0-0.1); BASOPHILS % (AUTO) 1 % (0-10); EOSINOPHILS # (AUTO) 0.1 10^3/uL (0.0-0.3); EOSINOPHILS % (AUTO) 1 % (0-10); HEMATOCRIT 30 % (35-52); HEMOGLOBIN 9.2 g/dL (11.5-16.0); LYMPHOCYTES % (AUTO) 17 % (12-44); MEAN CORPUSCULAR HEMOGLOBIN 23 pg (25-34); MEAN CORPUSCULAR HGB CONC 31 g/dL (32-36); MEAN CORPUSCULAR VOLUME 76 fL (80-99); MONOCYTES # (AUTO) 0.6 10^3/uL (0.0-1.0); MONOCYTES % (AUTO) 5 % (0-12); NEUTROPHILS # (AUTO) 9.5 10^3/uL (1.8-7.8); NEUTROPHILS % (AUTO) 77 % (42-75); PLATELET COUNT 281 10^3/uL (130-400); WHITE BLOOD COUNT 12.2 10^3/uL (4.3-11.0)
[2022-11-18] MEDS ORDERED: PRENATAL VITAMIN 1 EA TAB PO SCH (07:00)
[2022-11-18] MEDS ORDERED: IRON SUCROSE INJECTION 300 MG in NS (IVPB) 250 ML IV SCH (07:00)
[2022-11-18 08:40] VITALS: BP 117/60
[2022-11-18] MEDS: DOCUSATE SODIUM 100 MG (COLACE) CAP PO SCH (08:48)
[2022-11-18] MEDS ORDERED: FERROUS SULF 325 MG (IRON) TAB PO SCH (09:00)
[2022-11-18] MEDS ORDERED: RHO(D) IMMUNE GLOBULIN 300 MCG/2 ML SYRINGE IM/IV ONE (09:00)
[2022-11-18 12:41] VITALS: BP 112/70
[2022-11-18] MEDS ORDERED: RHO(D) IMMUNE GLOBULIN 300 MCG/2 ML SYRINGE ONE (18:45)
--- NOTE | 2022-11-18 18:55 | Discharge Inst-Women's Service ---
Discharge Inst-Women's Serv Depart Medication/Instructions New, Converted or Re-Newed RX: Other Instructions May continue with home vitamin once daily. May also take ibuprofen 2 or 3 tablets every 6 hours if needed for cramps Problems Reviewed?: Yes Consults/Follow Up Additional Follow Up: Yes (Dr. Segovia in 6 weeks) Activity Activity: Activity as Tolerated Driving Instructions: No Driving for 1 Week Nothing Inside Vagina: No Turney (For 6 weeks) Diet Discharge Diet: Regular Diet Return to The Hospital For: As below Symptoms to Report to : Swelling Increased, Bleeding Excessive, Fever Over 101 Degrees F, Vaginal Discharge Foul For Any Problems or Questions: Contact Your Physician VERA CYR MD Nov 18, 2022 18:55
--- NOTE | 2022-11-18 19:00 | Discharge Summary ---
Diagnosis/Chief Complaint Date of Admission Nov 17, 2022 at 13:18 Date of Discharge November 18, 2022 Admission Diagnosis Admission Diagnosis 1. Intrauterine at 38 weeks gestation Discharge Diagnosis 1. Intrauterine at 38 weeks gestation Chief Complaint/HPI Chief Complaint/HPI 27-year-old 2 now T2L2 who presented to labor and delivery during the afternoon of November 17, 2022 in active labor. She was at 38 weeks gestation. She had received her care through in [facility]. Her care was essentially unremarkable. Her GBS status was noted to be negative. Discharge Summary-OBS Procedures 1. Spontaneous vaginal delivery Discharge Physical Examination Allergies: Coded Allergies: amoxicillin (Unverified Allergy, Severe, 11/01/22) In medical record clavulanic acid (Unverified Allergy, Severe, 11/01/22) In medical record rubella virus live vaccine (Unverified Allergy, Unknown, 11/01/22) In medical record Vitals & I&Os Intake and Output 11/18/22 00:00 Intake Total 1950 ml Balance 1950 ml Vital Sign - Last 12Hours Date Time Temp Pulse Resp B/P (MAP) Pulse Ox O2 Delivery O2 Flow Rate FiO2 11/18/22 12:41 36.6 105 20 112/70 (84) Room Air 11/18/22 03:03 98 General Appearance: No Acute Distress Respiratory: Clear to Auscultation Cardiovascular: Regular Rate Abdominal: Soft (With uterus firm) Neuro: Normal Speech Hospital Course Was the Problem List Reviewed?: Yes upon arrival patient underwent labor course. Eventually she went on to deliver spontaneous vaginal term viable male. She was noted to have no significant bleed. See labor and delivery note for full details. Following delivery she underwent routine care orders. She had no complications during the remainder of hospital stay. She was noted to void urine without difficulty. Her hemoglobin in the morning of November 18 was 9.2 compared to admission of 9.3. She was without any lightheadedness or dizziness. She was ready for dismissal 24 hours after delivery. She was tolerating regular diet. She denied any chest pain or leg pain. She informs me she will continue with her vitamin and iron daily. She will follow up with Dr. Segovia in 6 weeks. Labs Laboratory Tests 11/18/22 06:26: White Blood Count 12.2H, Red Blood Count 3.95, Hemoglobin 9.2L, Hematocrit 30L, Mean Corpuscular Volume 76L, Mean Corpuscular Hemoglobin 23L, Mean Corpuscular Hemoglobin Concent 31L, Red Cell Distribution Width 18.4H, Platelet Count 281, Mean Platelet Volume 9.0, Immature Granulocyte % (Auto) 0, Neutrophils (%) (Aut o) 77H, Lymphocytes (%) (Auto) 17, Monocytes (%) (Auto) 5, Eosinophils (%) (Auto) 1, Basophils (%) (Auto) 1, Neutrophils # (Auto) 9.5H, Lymphocytes # (Auto) 2.0, Monocytes # (Auto) 0.6, Eosinophils # (Auto) 0.1, Basophils # (Auto) 0.1, Immature Granulocyte # (Auto) 0.1 Discharge Instructions to patient/family Please see electronic discharge instructions given to patient. Discharge Medications Reviewed and agree with Discharge Medication list on patient's Discharge Instruction sheet Copy Copies To 1: MANNY SEGOVIA MD, DANIEL J MD Nov 18, 2022 19:00
[2022-11-18 20:00] VITALS: BP 134/80
== END 2022-11-18 20:05 | disposition home or self-care (01) | DRG 807 ==
LOC: EDUNIT# 12:12 → ER FS 12:14 → LDRP 13:18
PROVIDERS: ADMIT Family Medicine; ATTEND Family Medicine
PROC: 10E0XZZ Delivery of Products of Conception, External Approach (ICD-10-PCS; principal; 2022-11-17)
PROC: 10907ZC Drainage of Amniotic Fluid, Therapeutic from Products of Conception, Via Natural or Artificial Opening (ICD-10-PCS; 2022-11-17)
DX: O99.02 Anemia complicating childbirth (principal); Z37.0 Single live birth; Z3A.37 37 weeks gestation of pregnancy; D50.9 Iron deficiency anemia, unspecified
CPT/HCPCS: 36415; 83033; 85025; 86780; 86850; 86900; 86901